=== PATIENT | female | born 1965 | race Caucasian/White ===

== ENCOUNTER 2021-02-14 18:04 | Emergency (ER) | payer MEDICAID ==
[~2021-02-14] VITALS: Ht 167.6 cm; Wt 81.8 kg
[2021-02-14] MEDS ORDERED: IBUPROFEN 800 MG TABLET PO ONE (19:15)
[2021-02-14] MEDS ORDERED: SILVER SULFADIAZINE 1% 25 GM CREAM TP ONE (19:15)
[2021-02-14 20:00] VITALS: BP 132/78
== END 2021-02-14 20:58 | disposition home or self-care (01) ==
LOC: EMS 18:06
DX: T23.221A Burn of second degree of single right finger (nail) except thumb, initial encounter (principal); X10.1XXA Contact with hot food, initial encounter; Y93.89 Activity, other specified; Y92.89 Other specified places as the place of occurrence of the external cause; Y99.8 Other external cause status
CPT/HCPCS: 16020; 99283